=== PATIENT | female | born 1950 | race Caucasian/White ===

== ENCOUNTER 2016-09-12 22:07 | Emergency (ER) | payer MEDICARE, OTHER ==
[2016-09-12] MEDS ORDERED: Aspirin 81 MG Tab.Chew PO ONE (22:32)
--- NOTE | 2016-09-12 22:32 | EDM.PDOC ---
ED HPI GENERAL MEDICAL PROBLEM - General Chief Complaint: Chest Pain Stated Complaint: HARD TO BREATH Time Seen by Provider: 09/12/16 22:11 Source of Information: Reports: Patient, Family, RN, RN Notes Reviewed History Limitations: Reports: No Limitations - History of Present Illness INITIAL COMMENTS - FREE TEXT/NARRATIVE: Patient presents to the ED at [facility] for chest pain. Patient states she had 3 separate episode today of substernal chest pain the radiate down both arms. Patient states the pain is pressure-like and squeezing. She does have SOB during each episode. Patient states her chest pain this time resolved upon arrival. Patient is currently chest pain free. Patient states her chest pain resolved after several minutes of rest. [place] [facility] [place] with the same complaint. Patient states all cardiac testing was negative. Onset: Today Duration: Intermittent Location: Reports: Chest Quality: Reports: Pressure, Same as Previous Episode Severity: Mild Improves with: Reports: Rest Worsens with: Reports: Movement Context: Denies: Activity, Exercise, Lifting, Sick Contact, Trauma Associated Symptoms: Reports: Shortness of Breath Chest Pain Score (Numeric/FACES): 0 - Related Data Allergies Allergy/AdvReac Type Severity Reaction Status Date / Time metoclopramide HCl Allergy Other Verified 09/12/16 22:42 [From Reglan] omeprazole [From Prilosec] Allergy Other Verified 09/12/16 22:42 omeprazole magnesium Allergy Other Verified 09/12/16 22:42 [From Prilosec] tramadol Allergy Other Verified 09/12/16 22:42 Home Meds: Home Meds Albuterol [Proventil HFA] 2 puff PO Q4HR PRN 10/14/15 [History] Aspirin [Ecotrin] 325 mg PO DAILY 10/14/15 [History] Aspirin/Acetaminophen/Caffeine [Azgqcng-Bztrhwgkmnjqd-Ltfa Tab] 2 tab PO ASDIRECTED PRN 10/14/15 [History] Codeine/Butalbital/ASA/Caffein [Ascomp with Codeine] 1 cap PO Q4H PRN 10/14/15 [ History] Cyclobenzaprine [Flexeril] 2 tab PO DAILY 10/14/15 [History] Estrogens, Conjugated [Premarin Vaginal Crm] 1 applic VAG ASDIRECTED 10/14/15 [ History] Hydrochlorothiazide 25 mg PO DAILY 10/14/15 [History] Ibuprofen [Advil] 400 - 800 mg PO BEDTIME 10/14/15 [History] Promethazine [Phenergan] 1 tab PO TID PRN 10/14/15 [History] Propranolol HCl [Inderal LA] 1 cap PO DAILY 10/14/15 [History] SUMAtriptan Succinate [Imitrex] 1 tab PO ASDIRECTED PRN 10/14/15 [History] Esomeprazole Magnesium [Nexium] 40 mg PO DAILY 09/12/16 [History] Past Medical History HEENT History: Reports: Other (See Below) Other HEENT History: dysphonia, tmj Cardiovascular History: Reports: High Cholesterol, Hypertension Respiratory History: Reports: Other (See Below) Other Respiratory History: Chronic bronchitis, exercise induced shortness of breath Gastrointestinal History: Reports: Diverticulosis, GERD, Helicobacter Pylori, Irritable Bowel Syndrome, Other (See Below) Other Gastrointestinal History: fm hx colon ca, Genitourinary History: Reports: Other (See Below) Other Genitourinary History: breast augmentation, Musculoskeletal History: Reports: Fibromyalgia, Other (See Below) Other Musculoskeletal History: djd, metatarsalgia, hammertoe, scoliosis, hip pain, cervical radiculopathy, myalgia, bilat epicondylitis Neurological History: Reports: Migraines, Other (See Below) Other Neuro History: paresthesia of both legs Psychiatric History: Reports: Depression Endocrine/Metabolic History: Reports: Osteopenia Hematologic History: Reports: Other (See Below) Other Hematologic History: raynauds phenomemon Oncologic (Cancer) History: Reports: Lymphoma Dermatologic History: Reports: Other (See Below) Other Dermatologic History: acne, - Past Surgical History Musculoskeletal Surgical History: Reports: Shoulder Surgery, Other (See Below) Social & Family History - Tobacco Use Smoking Status *Q: Unknown Ever Smoked - Alcohol Use Days Per Week of Alcohol Use: 7 Number of Drinks Per Day: 1 Total Drinks Per Week: 7 - Recreational Drug Use Recreational Drug Use: No ED ROS GENERAL - Review of Systems Review Of Systems: See Below Constitutional: Denies: Fever, Chills, Weakness Respiratory: Reports: Shortness of Breath. Denies: Cough Cardiovascular: Reports: Chest Pain, Dyspnea on Exertion. Denies: Palpitations GI/Abdominal: Denies: Abdominal Pain, Nausea, Vomiting Skin: Reports: No Symptoms Neurological: Reports: No Symptoms. Denies: Headache, Numbness, Paresthesia, Tingling ED EXAM, GENERAL - Physical Exam Exam: See Below Exam Limited By: No Limitations General Appearance: Alert, No Apparent Distress Respiratory/Chest: No Respiratory Distress, Lungs Clear, Normal Breath Sounds Cardiovascular: Normal Peripheral Pulses, Regular Rate, Rhythm, No Edema, No Murmur GI/Abdominal: Normal Bowel Sounds, Soft, Non-Tender Neurological: Alert, Oriented Skin Exam: Warm, Dry, Intact, Normal Color, No Rash EKG INTERPRETATION EKG Date: 09/12/16 Time: 22:15 Rhythm: NSR Rate (beats/min): 67 Sandwich: normal P-wave: present QRS: normal ST-T: normal QT: normal AR/PQ Interval: 0.17 Comparison: no change EKG Interpretation Comments: Normal Sinus Rhythm; Normal ECG Course - Vital Signs Last Recorded V/S: Last Vital Signs Temp 35.8 C 09/12/16 22:07 Pulse 71 09/12/16 22:07 Resp 20 09/12/16 23:16 BP 133/73 09/12/16 23:16 Pulse Ox 96 09/12/16 23:16 - Orders/Labs/Meds Orders: Active Orders 24 hr Category Date Time Status EKG 12 Lead [EKG Documentation Completion] [RC] STAT Care 09/12/16 22:32 Active Chest 2V [CR] Stat Exams 09/12/16 22:33 Taken BASIC METABOLIC PANEL,BMP [CHEM] Stat Lab 09/12/16 22:50 Results CK W CKMB [CHEM] Stat Lab 09/12/16 22:50 Results MAGNESIUM [CHEM] Stat Lab 09/12/16 22:50 Results PHOSPHORUS [CHEM] Stat Lab 09/12/16 22:50 Results Labs: Laboratory Tests 09/12/16 09/12/16 09/12/16 Range/Units 22:50 22:50 23:01 WBC 4.2 (4.0-10.0) x10^3/uL RBC 3.94 L (4.00-5.50) x10^6/uL Hgb 12.5 (12.0-16.0) g/dL Hct 38.1 (33.0-47.0) % MCV 96.7 H (78.0-93.0) fL MCH 31.7 (26.0-32.0) pg MCHC 32.8 (32.0-36.0) g/dL RDW Coeff of Gordy 13.2 (10.0-15.0) % Plt Count 340 (130-400) x10^3/uL Neut % (Auto) 58.4 (50.0-80.0) % Lymph % (Auto) 24.4 L (25.0-50.0) % [place] % (Auto) 11.5 H (2.0-11.0) % Eos % (Auto) 4.5 H (0.0-4.0) % Baso % (Auto) 1.2 (0.2-1.2) % Sodium 145 (136-145) mmol/L Potassium 4.0 (3.5-5.1) mmol/L Chloride 109 H (98-107) mmol/L Carbon Dioxide 27 (21-32) mmol/L BUN 16 (7-18) mg/dL Creatinine 0.9 (0.55-1.02) mg/dL Est Cr Clr Drug Dosing TNP Estimated GFR (MDRD) > 60 Glucose 106 (74-106) mg/dL Calcium 8.3 L (8.5-10.1) mg/dL Phosphorus 2.5 L (2.6-4.7) mg/dL Magnesium 2.1 (1.8-2.4) mg/dL Creatine Kinase 166 (26-192) U/L POC Troponin I 0.01 (0.00-0.08) ng/mL Meds: Medications Discontinued Medications Generic Name Dose Route Start Last Admin Trade Name Prakashq PRN Reason Stop Dose Admin Aspirin 324 mg 09/12/16 22:32 09/12/16 22:22 Aspirin PO 09/12/16 22:33 324 mg ONETIME ONE Administration - Radiology Interpretation Free Text/Narrative:: CXR: No acute findings - see scanned report in EMR Departure - Departure Time of Disposition: 23:33 Disposition: Home, Self-Care 01 Reason for Transfer *Q: Other Condition: good Clinical Impression: Atypical chest pain Instructions: Nonspecific Chest Pain, [id number] Referrals: Deven Disla MD [Primary Care Provider] - Forms: ED Department Discharge Additional Instructions: 1. Stay well hydrated and rest 2. Continue same medications at home without any changes 3. See Dr. Disla in clinic this week for a follow up of your symptoms - Problem List & Annotations (1) Atypical chest pain SNOMED Code(s): 179767026 Code(s): R07.89 - OTHER CHEST PAIN Status: Acute Current Visit: Yes Onset Date: ~09/12/16 - Problem List Review Problem List Initiated/Reviewed/Updated: Yes - My Orders Last 24 Hours: My Active Orders 09/12/16 22:32 EKG 12 Lead [EKG Documentation Completion] [RC] STAT 09/12/16 22:33 Chest 2V [CR] Stat 09/12/16 22:50 BASIC METABOLIC PANEL,BMP [CHEM] Stat CK W CKMB [CHEM] Stat MAGNESIUM [CHEM] Stat PHOSPHORUS [CHEM] Stat - Assessment/Plan Last 24 Hours: My Active Orders 09/12/16 22:32 EKG 12 Lead [EKG Documentation Completion] [RC] STAT 09/12/16 22:33 Chest 2V [CR] Stat 09/12/16 22:50 BASIC METABOLIC PANEL,BMP [CHEM] Stat CK W CKMB [CHEM] Stat MAGNESIUM [CHEM] Stat PHOSPHORUS [CHEM] Stat
[2016-09-12 23:23] LABS: CHLORIDE,CL 109 mmol/L (98-107); SODIUM,NA 145 mmol/L (136-145)
[2016-09-12 23:25] VITALS: BP 133/73
== END 2016-09-12 23:42 | disposition home or self-care (01) ==
LOC: VM.ED 22:07
DX: R07.89 Other chest pain (principal); I10 Essential (primary) hypertension; K21.9 Gastro-esophageal reflux disease without esophagitis; Z98.890 Other specified postprocedural states; Z88.8 Allergy status to other drugs, medicaments and biological substances; Z79.82 Long term (current) use of aspirin; Z79.899 Other long term (current) drug therapy; E78.00 Pure hypercholesterolemia, unspecified
CPT/HCPCS: 36415; 71020; 80048; 82550; 82553; 83735; 84100; 84484; 85025; 93005; 99283; 99285; A9270

== ENCOUNTER 2020-01-03 14:00 | Emergency (ER) | payer MEDICARE, OTHER ==
[2020-01-03 14:10] VITALS: BP 145/63; PULSE 78
[2020-01-03] MEDS ORDERED: Acetaminophen 500 MG Tab PO ONE (14:13)
--- NOTE | 2020-01-03 14:21 | EDM.PDOC ---
ED HPI GENERAL MEDICAL PROBLEM - General Chief Complaint: Laceration Stated Complaint: ER VISIT Time Seen by Provider: 01/03/20 14:05 Source of Information: Reports: Patient History Limitations: Reports: No Limitations - History of Present Illness INITIAL COMMENTS - FREE TEXT/NARRATIVE: Patient comes in emergency department with a laceration to her left toe. Patient states that she has had multiple surgeries on that left foot related to hammertoes. She states that her second digit often hangs down and she ends up tripping on it. This was the case today she was walking and ended up tripping on the carpet causing her to fall. She denies hitting her head or any other portion of her body. She notes that she had a laceration to the top portion of her toe. She did present to the clinic however they wanted to have her evaluated and sutured in the emergency department. Patient denies any other concerns or complaints states she Has felt relatively healthy. She denies any active COVID-19 symptoms or any positive findings. Patient denies any CMS or range of motion concerns. She states that her Toe is throbbing. But does feel better if it is resting. She notices that the pain is more consistent if she is trying to move the toe. Onset: Sudden Location: Reports: Lower Extremity, Left Quality: Reports: Throbbing Severity: Moderate Improves with: Reports: Immobilization Worsens with: Reports: Movement Left Toe-Long Pain Score (Numeric/FACES): 7 - Related Data Allergies Allergy/AdvReac Type Severity Reaction Status Date / Time metoclopramide HCl Allergy Other Verified 01/03/20 14:14 [From Reglan] omeprazole [From Prilosec] Allergy Other Verified 01/03/20 14:14 omeprazole magnesium Allergy Other Verified 01/03/20 14:14 [From Prilosec] tramadol Allergy Other Verified 01/03/20 14:14 Home Meds: Home Meds Albuterol [Proventil HFA] 2 puff PO Q4HR PRN 10/14/15 [History] Aspirin [Ecotrin] 325 mg PO DAILY 10/14/15 [History] Aspirin/Acetaminophen/Caffeine [Nvufqnv-Fajynmeaqbnhd-Mllh Tab] 2 tab PO ASDIRECTED PRN 10/14/15 [History] Codeine/Butalbital/ASA/Caffein [Ascomp with Codeine] 1 cap PO Q4H PRN 10/14/15 [History] Cyclobenzaprine [Flexeril] 2 tab PO DAILY 10/14/15 [History] Estrogens, Conjugated [Premarin Vaginal Crm] 1 applic VAG ASDIRECTED 10/14/15 [History] Hydrochlorothiazide 25 mg PO DAILY 10/14/15 [History] Ibuprofen [Advil] 400 - 800 mg PO BEDTIME 10/14/15 [History] Promethazine [Phenergan] 1 tab PO TID PRN 10/14/15 [History] Propranolol HCl [Inderal LA] 1 cap PO DAILY 10/14/15 [History] SUMAtriptan succinate [Imitrex] 1 tab PO ASDIRECTED PRN 10/14/15 [History] Esomeprazole Magnesium [Nexium] 40 mg PO DAILY 09/12/16 [History] Past Medical History HEENT History: Reports: Other (See Below) Other HEENT History: dysphonia, tmj Cardiovascular History: Reports: High Cholesterol, Hypertension Respiratory History: Reports: Other (See Below) Other Respiratory History: Chronic bronchitis, exercise induced shortness of breath Gastrointestinal History: Reports: Diverticulosis, GERD, Helicobacter Pylori, Irritable Bowel Syndrome, Other (See Below) Other Gastrointestinal History: fm hx colon ca, Genitourinary History: Reports: Other (See Below) Other Genitourinary History: breast augmentation, Musculoskeletal History: Reports: Fibromyalgia, Other (See Below) Other Musculoskeletal History: djd, metatarsalgia, hammertoe, scoliosis, hip pain, cervical radiculopathy, myalgia, bilat epicondylitis Neurological History: Reports: Migraines, Other (See Below) Other Neuro History: paresthesia of both legs Psychiatric History: Reports: Depression Endocrine/Metabolic History: Reports: Osteopenia Hematologic History: Reports: Other (See Below) Other Hematologic History: raynauds phenomemon Oncologic (Cancer) History: Reports: Lymphoma Dermatologic History: Reports: Other (See Below) Other Dermatologic History: acne, - Past Surgical History Musculoskeletal Surgical History: Reports: Shoulder Surgery, Other (See Below) ED ROS GENERAL - Review of Systems Review Of Systems: Comprehensive ROS is negative, except as noted in HPI. Constitutional: Reports: No Symptoms HEENT: Reports: No Symptoms Respiratory: Reports: No Symptoms Cardiovascular: Reports: No Symptoms Endocrine: Reports: No Symptoms GI/Abdominal: Reports: No Symptoms : Reports: No Symptoms Musculoskeletal: Reports: No Symptoms Skin: Reports: No Symptoms Neurological: Reports: No Symptoms Psychiatric: Reports: No Symptoms Hematologic/Lymphatic: Reports: No Symptoms ED EXAM, SKIN/RASH Exam: See Below Exam Limited By: No Limitations General Appearance: Alert, WD/WN, No Apparent Distress Head: Atraumatic, Normocephalic Neck: Normal Inspection, Supple, Non-Tender, Full Range of Motion Respiratory/Chest: No Respiratory Distress, No Accessory Muscle Use, Chest Non- Tender Peripheral Pulses: 4+: Dorsalis Pedis (L), Dorsalis Pedis (R) Extremities: Normal Inspection, No Pedal Edema, Normal Capillary Refill, Other (left for 2nd digit. laceration with bleeding control. tenderness upon movement. CMS/ROM intact. no redness, warmth or swelling noted. ) Neurological: Oriented, CN II-XII Intact, Normal Cognition, Normal Gait Psychiatric: Normal Affect, Normal Mood Skin: Warm, Dry, Intact, Normal Color ED SKIN PROCEDURES - Laceration/Wound Repair Left Distal Toe - Second Appearance: Superficial, Linear Distal NVT: Neuro & Vascular Intact, No Tendon Injury Anesthetic Type: Local Local Anesthesia - Lidocaine (Xylocaine): 1% Plain Local Anesthetic Volume: 4cc Exploration/Debridement/Repair: No Foreign Material Found Closed with: Sutures Lac/Wound length In cm: 3 Suture Size: 4-0 Suture Type: Simple Tetanus Status Addressed: Yes Complications: No Course - Vital Signs Last Recorded V/S: Last Vital Signs Temp 35.9 C L 01/03/20 14:00 Pulse 78 01/03/20 14:00 Resp 18 01/03/20 14:00 BP 145/63 H 01/03/20 14:00 Pulse Ox 97 01/03/20 14:00 - Orders/Labs/Meds Meds: Medications Discontinued Medications Generic Name Dose Route Start Last Admin Trade Name Freq PRN Reason Stop Dose Admin Acetaminophen 1,000 mg 01/03/20 14:13 01/03/20 14:20 Tylenol Extra Strength PO 01/03/20 14:14 1,000 mg ONETIME ONE Administration Diphtheria/Tetanus/Acell Pertussis 0.5 ml 01/03/20 14:57 01/03/20 15:21 Adacel IM 01/03/20 14:58 0.5 ml .ONCE ONE Administration Lidocaine HCl 5 ml 01/03/20 14:15 01/03/20 14:20 Xylocaine-Mpf 1% INJECT 01/03/20 14:16 5 ml ONETIME ONE Administration Departure - Departure Time of Disposition: 14:40 Disposition: Home, Self-Care 01 Condition: Good Clinical Impression: Laceration - Discharge Information *PRESCRIPTION DRUG MONITORING PROGRAM REVIEWED*: Not Applicable *COPY OF PRESCRIPTION DRUG MONITORING REPORT IN PATIENT JULIANA: Not Applicable Instructions: Laceration Care, Adult, [id number] Referrals: Elliot Matson PA-C [Primary Care Provider] - Forms: ED Department Discharge Additional Instructions: 1. Rest 2. Keep the area clean and dry 3. Can use tylenol and ibuprofen as needed for pain and discomfort 4. Diet as tolerated 5. Activity as tolerated 6. Elevated the injured area above the level of the heart to decrease swelling and discomfort if applicable 7. Can use ice 3-4 times a day at 20-minute intervals to help with any swelling and discomfort 8. Follow-up with your primary care provider symptoms continue or to progress 9. Discharge information has been provided regarding your injury and wound care has been provided 10. Avoid an public pools or hot tubes until wound is healed. 11. Follow up in the Clinic in 10 days for removal of sutures Sepsis Event Note (ED) - Evaluation Sepsis Screening Result: No Definite Risk - Focused Exam Vital Signs: Vital Signs Temp Pulse Resp BP Pulse Ox 01/03/20 14:00 35.9 C L 78 18 145/63 H 97 - Assessment/Plan Assessment:: 1. laceration Plan: 1. Wound cleansing completed 2. Laceration repair completed 3. Tdap vaccine history completed 4. Education regarding wound care, dressing changes, OTC medications, activity, diet, follow up care and when to seek care if warranted provided 5. Patient is to return to the clinic in 10 days to have sutures site evaluated and removed 6. Patient was encouraged to call or return if any questions or concerns arise.
[2020-01-03] MEDS ORDERED: Diphtheria,Pertussis(Acell),Tetanus Vaccine 0.5 ML Syringe IM ONE (14:57)
--- NOTE | 2020-01-03 15:08 | CR ---
[id number] RAD/RAD Toes Left EXAM: 2 VIEWS LEFT FOOT. INDICATION: FALL/TRIP. COMPARISON: None. DISCUSSION: Postsurgical changes seen throughout the first digit. No evidence of hardware failure or loosening. Old fusion of the second proximal interphalangeal joint. Mild to moderate degenerative changes most pronounced at the first metatarsophalangeal joint. IMPRESSION: 1. No acute osseous abnormalities. Chronic changes as above. Patrick Abdullahi DO 01/03/20 1504 Thank you for allowing us to participate in the care of your patient.
== END 2020-01-03 15:08 | disposition home or self-care (01) ==
LOC: VM.ED 14:00
DX: S91.115A Laceration without foreign body of left lesser toe(s) without damage to nail, initial encounter (principal); I10 Essential (primary) hypertension; K21.9 Gastro-esophageal reflux disease without esophagitis; Z23 Encounter for immunization; Z88.6 Allergy status to analgesic agent; Z88.8 Allergy status to other drugs, medicaments and biological substances; Z79.82 Long term (current) use of aspirin; Z79.899 Other long term (current) drug therapy; W01.0XXA Fall on same level from slipping, tripping and stumbling without subsequent striking against object, initial encounter
CPT/HCPCS: 12002; 73660-LT; 90471; 90715; 99283; 99283-25; A9270-GY; J2001

== ENCOUNTER 2020-06-22 20:32 | Emergency (ER) | payer MEDICARE, OTHER ==
--- NOTE | 2020-06-22 20:55 | EDM.PDOC ---
ED HPI GENERAL MEDICAL PROBLEM - General Chief Complaint: Respiratory Problem Stated Complaint: ER VISIT Time Seen by Provider: 06/22/20 20:55 Source of Information: Reports: Patient, RN, RN Notes Reviewed History Limitations: Reports: No Limitations - History of Present Illness INITIAL COMMENTS - FREE TEXT/NARRATIVE: Patient is a 69-year-old female who presents to ER with complaint of cough for the past 4 to 5 days. Patient states it has progressively been getting worse. Patient admits to history of bronchitis her entire life. Admits to recent fever and chills, chest pains only with cough, and feeling of shortness of breath. Patient states she does have some urinary incontinence with cough. States she has seasonal allergies, [place], and things have been blowing around recently. Patient states she has vomited only with coughing this week, states her throat is raw from this. Denies known exposure to Covid, states she is to have her first Covid vaccination tomorrow. Patient states she tries to isolate herself from others, has only been present around her children. Onset: Gradual Chest Pain Score (Numeric/FACES): 4 - Related Data Allergies Allergy/AdvReac Type Severity Reaction Status Date / Time metoclopramide HCl Allergy Other Verified 01/03/20 14:14 [From Reglan] omeprazole [From Prilosec] Allergy Other Verified 01/03/20 14:14 omeprazole magnesium Allergy Other Verified 01/03/20 14:14 [From Prilosec] tramadol Allergy Other Verified 01/03/20 14:14 Home Meds: Home Meds Albuterol [Proventil HFA] 2 puff PO Q4HR PRN 10/14/15 [History] Aspirin [Ecotrin] 325 mg PO DAILY 10/14/15 [History] Aspirin/Acetaminophen/Caffeine [Lrwhzrr-Jmnduiinelzpp-Tmds Tab] 2 tab PO ASDIRECTED PRN 10/14/15 [History] Codeine/Butalbital/ASA/Caffein [Ascomp with Codeine] 1 cap PO Q4H PRN 10/14/15 [History] Cyclobenzaprine [Flexeril] 2 tab PO DAILY 10/14/15 [History] Estrogens, Conjugated [Premarin Vaginal Crm] 1 applic VAG ASDIRECTED 10/14/15 [History] Hydrochlorothiazide 25 mg PO DAILY 10/14/15 [History] Ibuprofen [Advil] 400 - 800 mg PO BEDTIME 10/14/15 [History] Promethazine [Phenergan] 1 tab PO TID PRN 10/14/15 [History] Propranolol HCl [Inderal LA] 1 cap PO DAILY 10/14/15 [History] SUMAtriptan succinate [Imitrex] 1 tab PO ASDIRECTED PRN 10/14/15 [History] Esomeprazole Magnesium [Nexium] 40 mg PO DAILY 09/12/16 [History] Past Medical History HEENT History: Reports: Other (See Below) Other HEENT History: dysphonia, tmj Cardiovascular History: Reports: High Cholesterol, Hypertension Respiratory History: Reports: Other (See Below) Other Respiratory History: Chronic bronchitis, exercise induced shortness of breath Gastrointestinal History: Reports: Diverticulosis, GERD, Helicobacter Pylori, Irritable Bowel Syndrome, Other (See Below) Other Gastrointestinal History: fm hx colon ca, Genitourinary History: Reports: Other (See Below) Other Genitourinary History: breast augmentation, Musculoskeletal History: Reports: Fibromyalgia, Other (See Below) Other Musculoskeletal History: djd, metatarsalgia, hammertoe, scoliosis, hip pain, cervical radiculopathy, myalgia, bilat epicondylitis Neurological History: Reports: Migraines, Other (See Below) Other Neuro History: paresthesia of both legs Psychiatric History: Reports: Depression Endocrine/Metabolic History: Reports: Osteopenia Hematologic History: Reports: Other (See Below) Other Hematologic History: raynauds phenomemon Oncologic (Cancer) History: Reports: Lymphoma Dermatologic History: Reports: Other (See Below) Other Dermatologic History: acne, - Past Surgical History Musculoskeletal Surgical History: Reports: Shoulder Surgery, Other (See Below) ED ROS GENERAL - Review of Systems Review Of Systems: Comprehensive ROS is negative, except as noted in HPI. ED EXAM, GENERAL - Physical Exam Exam: See Below Exam Limited By: No Limitations General Appearance: Alert, WD/WN, No Apparent Distress Eye Exam: Bilateral Eye: EOMI, Normal Inspection Ears: Normal External Exam, Hearing Grossly Normal Nose: Normal Inspection Throat/Mouth: Normal Inspection, Normal Voice, No Airway Compromise Head: Atraumatic, Normocephalic Neck: Normal Inspection, Supple, Non-Tender, Full Range of Motion Respiratory/Chest: Decreased Breath Sounds (Throughout), Crackles (Throughout), Wheezing (Upper lobes bilaterally) Cardiovascular: Normal Peripheral Pulses, Regular Rate, Rhythm, No Edema, No Gallop, No JVD, No Murmur, No Rub Peripheral Pulses: 2+: Radial (L), Radial (R) GI/Abdominal: Normal Bowel Sounds, Soft, Non-Tender, No Distention (Female) Exam: Deferred Rectal (Female) Exam: Deferred Back Exam: Normal Inspection, Full Range of Motion, NT Extremities: Normal Inspection, Normal Range of Motion, Non-Tender, Normal Capillary Refill, No Pedal Edema Neurological: Alert, Oriented, CN II-XII Intact, Normal Cognition, Normal Gait, Normal Reflexes, No Motor/Sensory Deficits Psychiatric: Normal Affect, Normal Mood Skin Exam: Warm, Dry, Intact, No Rash, Other (Purple color to the feet, has been diagnosed with Raynaud's, states nailbeds become blue with coughing.) Lymphatic: No Adenopathy Course - Vital Signs Last Recorded V/S: Last Vital Signs Temp 97.6 F 06/22/20 20:45 Pulse 78 06/22/20 20:45 Resp 26 H 06/22/20 20:45 BP 179/100 H 06/22/20 20:45 Pulse Ox 97 06/22/20 20:45 - Orders/Labs/Meds Orders: Active Orders 24 hr Category Date Time Status RT Aerosol Therapy [RC] ASDIRECTED Care 06/22/20 21:05 Active RT Aerosol Therapy [RC] ASDIRECTED Care 06/22/20 22:22 Ordered Chest 1V Frontal [CR] Stat Exams 06/22/20 20:54 Taken Labs: Laboratory Tests 06/22/20 06/22/20 06/22/20 Range/Units 21:06 21:06 21:08 WBC 8.4 (4.0-10.0) x10^3/uL RBC 4.23 (4.00-5.50) x10^6/uL Hgb 13.4 (12.0-16.0) g/dL Hct 40.5 (33.0-47.0) % MCV 95.7 H (78.0-93.0) fL MCH 31.7 (26.0-32.0) pg MCHC 33.1 (32.0-36.0) g/dL RDW Coeff of Gordy 13.6 (10.0-15.0) % Plt Count 314 (130-400) x10^3/uL Neut % (Auto) 70.8 (50.0-80.0) % Lymph % (Auto) 15.3 L (25.0-50.0) % [place] % (Auto) 10.6 (2.0-11.0) % Eos % (Auto) 2.9 (0.0-4.0) % Baso % (Auto) 0.4 (0.2-1.2) % Sodium 142 (136-145) mmol/L Potassium 4.2 (3.5-5.1) mmol/L Chloride 105 (98-107) mmol/L Carbon Dioxide 28 (21-32) mmol/L Anion Gap 13.2 (5-15) mmol/L BUN 21 H (7-18) mg/dL Creatinine 1.1 H (0.55-1.02) mg/dL Est Cr Clr Drug Dosing 41.68 mL/min Estimated GFR (MDRD) 49 Glucose 116 H (74-106) mg/dL Calcium 8.7 (8.5-10.1) mg/dL Corrected Calcium 9.02 (8.5-10.1) mg/dL Total Bilirubin 0.3 (0.2-1.0) mg/dL AST 20 (15-37) U/L ALT 21 (14-59) U/L Alkaline Phosphatase 130 H (46-116) U/L C-Reactive Protein 0.7 (<=0.9) mg/dL Total Protein 7.5 (6.4-8.2) g/dL Albumin 3.6 (3.4-5.0) g/dL Globulin 3.9 Albumin/Globulin Ratio 0.92 Influenza Type A RNA Negative (NEGATIVE) Influenza Type B RNA Negative (NEGATIVE) SARS-CoV-2 RNA (MAJO) Negative (NEGATIVE) Meds: Medications Discontinued Medications Generic Name Dose Route Start Last Admin Trade Name Freq PRN Reason Stop Dose Admin Albuterol 2.5 mg 06/22/20 22:22 Albuterol 0.083% 2.5 Mg/3 Ml Neb Soln NEB 06/22/20 22:23 ONETIME ONE Albuterol/Ipratropium 3 ml 06/22/20 21:03 06/22/20 21:56 Albuterol/Ipratropium 3.0-0.5 Mg/3 Ml Neb Soln NEB 06/22/20 21:04 3 ml ONETIME ONE Administration Guaifenesin/Codeine Phosphate 5 ml 06/22/20 22:22 Codeine/Guaifenesin 10-100 Mg/5 Ml Syrup 5 Ml Cup PO 06/22/20 22:23 ONETIME ONE Sodium Chloride 1,000 mls @ 999 mls/hr 06/22/20 21:03 06/22/20 21:27 Normal Saline IV 06/22/20 22:03 999 mls/hr ONETIME ONE Administration Methylprednisolone Sodium Succinate 125 mg 06/22/20 21:03 06/22/20 21:28 Methylprednisolone Sodium Succinate 125 Mg/2 Ml Sdv IVPUSH 06/22/20 21:04 125 mg ONETIME ONE Administration - Radiology Interpretation Free Text/Narrative:: Chest x-ray: No acute findings See radiologist report Departure - Departure Time of Disposition: 22:45 Disposition: Home, Self-Care 01 Condition: Good Clinical Impression: Bronchitis - Discharge Information *PRESCRIPTION DRUG MONITORING PROGRAM REVIEWED*: No *COPY OF PRESCRIPTION DRUG MONITORING REPORT IN PATIENT JULIANA: No Instructions: Acute Bronchitis, Adult, [id number] Referrals: Elliot Matson PA-C [Primary Care Provider] - Forms: ED Department Discharge Additional Instructions: RX: Cheratussin 5 to 10 mL every 4-6 hours as needed for cough, do not drive while taking this medication Tessalon Perles 1 to 2 tablets every 6 hours as needed for cough Prednisone 20 mg tablets, take 2 tablets daily for the next 5 days Albuterol nebulizer solution, use nebulizer every 4 hours as needed for cough or shortness of breath Get your nebulizer machine tomorrow If no improvement follow-up with your primary care provider Drink plenty of water Sepsis Event Note (ED) - Focused Exam Vital Signs: Vital Signs Temp Pulse Resp BP Pulse Ox 06/22/20 20:45 97.6 F 78 26 H 179/100 H 97 - My Orders Last 24 Hours: My Active Orders 06/22/20 20:54 Chest 1V Frontal [CR] Stat 06/22/20 21:05 RT Aerosol Therapy [RC] ASDIRECTED 06/22/20 22:22 RT Aerosol Therapy [RC] ASDIRECTED - Assessment/Plan Last 24 Hours: My Active Orders 06/22/20 20:54 Chest 1V Frontal [CR] Stat 06/22/20 21:05 RT Aerosol Therapy [RC] ASDIRECTED 06/22/20 22:22 RT Aerosol Therapy [RC] ASDIRECTED
[2020-06-22] MEDS ORDERED: methylPREDNISolone Sodium Succinate 125 MG/2 ML SDV IVPUSH ONE (21:03)
[2020-06-22] MEDS ORDERED: Albuterol/Ipratropium 3.0-0.5 MG/3 ML Neb Soln NEB ONE (21:03)
[2020-06-22] MEDS ORDERED: Sodium Chloride 0.9% 1,000 ML IV ONE (21:03)
[2020-06-22 21:16] VITALS: BP 179/100; PULSE 78
[2020-06-22 21:36] LABS: ANION GAP 13.2 mmol/L (5-15)
[2020-06-22 21:55] LABS: CORONAVIRUS COVID-19 NAA NEGATIVE (NEGATIVE)
[2020-06-22] MEDS ORDERED: Albuterol 0.083% 2.5 MG/3 ML Neb Soln NEB ONE (22:22)
[2020-06-22] MEDS ORDERED: Codeine/guaiFENesin 10-100 MG/5 ML Syrup 5 ML Cup PO ONE (22:22)
--- NOTE | 2020-06-24 11:41 | CR ---
[id number] RAD/RAD Chest Portable EXAM: PORTABLE CHEST INDICATION: CHEST PAIN COMPARISON: September 12, 2016. DISCUSSION: Mild scarring or atelectasis in the left lung base. No acute infiltrates are identified. Normal heart size. No effusions. IMPRESSION: 1. No acute findings. Grayson Hassan MD 06/24/20 [id number] Thank you for allowing us to participate in the care of your patient.
== END 2020-06-22 23:00 | disposition home or self-care (01) ==
LOC: VM.ED 20:32
DX: J40 Bronchitis, not specified as acute or chronic (principal); I10 Essential (primary) hypertension; K21.9 Gastro-esophageal reflux disease without esophagitis; Z88.5 Allergy status to narcotic agent; Z88.8 Allergy status to other drugs, medicaments and biological substances; Z79.82 Long term (current) use of aspirin; Z79.899 Other long term (current) drug therapy; Z20.822 Contact with and (suspected) exposure to COVID-19
CPT/HCPCS: 0240U; 36415; 71045; 80053; 85025; 86140; 94640; 96374; 99284; 99285-25; A9270-GY; J2930; J7030; J7613-GY; J7620-GY

== ENCOUNTER 2022-04-15 09:32 | Day surgery (SDC) | payer MEDICARE, OTHER ==
[~2022-04-15 09:32] MED LIST: Lactated Ringers 1,000 ML IV SCH; Sodium Chloride 0.9% 10 ML Syringe FLUSH PRN
[2022-04-15] MEDS ORDERED: fentaNYL 100 MCG/2 ML SDV ONE (11:52)
[2022-04-15] MEDS ORDERED: Propofol 200 MG/20 ML SDV ONE ×3 (11:52→12:29)
[2022-04-15 13:19] VITALS: BP 113/52; PULSE 58
== END 2022-04-15 14:05 | disposition home or self-care (01) ==
LOC: VM.SDS 09:32
PROVIDERS: ATTEND Family Medicine
DX: Z12.11 Encounter for screening for malignant neoplasm of colon (principal); K57.30 Diverticulosis of large intestine without perforation or abscess without bleeding; I25.2 Old myocardial infarction; K21.00 Gastro-esophageal reflux disease with esophagitis, without bleeding; K58.9 Irritable bowel syndrome, unspecified; I12.9 Hypertensive chronic kidney disease with stage 1 through stage 4 chronic kidney disease, or unspecified chronic kidney disease; N18.30 Chronic kidney disease, stage 3 unspecified; M19.90 Unspecified osteoarthritis, unspecified site; E78.5 Hyperlipidemia, unspecified; F32.A Depression, unspecified; R73.9 Hyperglycemia, unspecified; Z80.0 Family history of malignant neoplasm of digestive organs; Z87.19 Personal history of other diseases of the digestive system; Z88.8 Allergy status to other drugs, medicaments and biological substances; Z98.890 Other specified postprocedural states; Z90.710 Acquired absence of both cervix and uterus; Z79.899 Other long term (current) drug therapy; Z79.82 Long term (current) use of aspirin; Z90.49 Acquired absence of other specified parts of digestive tract
CPT/HCPCS: 00812; J2704; J3010; J7120

== ENCOUNTER 2024-06-04 14:42 | Emergency (ER) | payer MEDICARE, OTHER ==
[2024-06-04 17:46] VITALS: BP 136/75; PULSE 75
== END 2024-06-04 15:43 | disposition home or self-care (01) ==
LOC: VM.ED 14:42
DX: J02.0 Streptococcal pharyngitis (principal); I10 Essential (primary) hypertension; I25.2 Old myocardial infarction; K21.9 Gastro-esophageal reflux disease without esophagitis; E78.00 Pure hypercholesterolemia, unspecified; Z88.8 Allergy status to other drugs, medicaments and biological substances; Z79.82 Long term (current) use of aspirin; Z79.899 Other long term (current) drug therapy; Z90.49 Acquired absence of other specified parts of digestive tract; Z90.710 Acquired absence of both cervix and uterus
CPT/HCPCS: 87651-QW; 99283

== ENCOUNTER 2025-01-08 21:40 | Emergency (ER) | payer MEDICARE, OTHER ==
[2025-01-08 21:58] VITALS: BP 147/65; PULSE 86
== END 2025-01-08 22:09 | disposition home or self-care (01) ==
LOC: VM.ED 21:40
DX: T81.41XA Infection following a procedure, superficial incisional surgical site, initial encounter (principal); I10 Essential (primary) hypertension; E78.00 Pure hypercholesterolemia, unspecified; I25.2 Old myocardial infarction; K21.9 Gastro-esophageal reflux disease without esophagitis; Z90.49 Acquired absence of other specified parts of digestive tract; Z88.8 Allergy status to other drugs, medicaments and biological substances; Z79.899 Other long term (current) drug therapy; Z79.82 Long term (current) use of aspirin
CPT/HCPCS: 99283; A9270-GY